=== PATIENT | female | born 1940 | race Caucasian/White ===

== ENCOUNTER → 2016-06-30 | Outpatient (CLI) | payer OTHER, MEDICARE | LOC: BMCIMAGING 13:50 | PROVIDERS: ATTEND Internal Medicine | DX: M79.89 Other specified soft tissue disorders (principal) ==

== ENCOUNTER 2016-08-17 08:47 | Emergency (ER) | payer OTHER, MEDICARE ==
[2016-08-17 09:01] VITALS: TEMP 97.5
[2016-08-17] MEDS ORDERED: NS 1,000 ML IV ONE (09:15)
--- NOTE | 2016-08-17 09:23 | EDPHY ---
H & P Time Seen by Provider: 08/17/16 08:58 HPI/ROS: CHIEF COMPLAINT: Abdominal discomfort, constipation HISTORY OF PRESENT ILLNESS: This patient is a 76 year old female complaining of abdominal discomfort intermittently over the last week and constipation. She was recently treated for shingles, two weeks ago, and had finished a course of steroids and Valtrex. She was prescribed Percocet as well for pain control, but states she has only taken two doses due to fear of constipation. She has discontinued all shingles medications at this time. She states she has had a decreased appetite, and endorses aching stomach and generalized discomfort, mostly localized to her lower left side. She is concerned that she has not had a bowel movement in quite some time, despite trying OTC constipation relief medications. She denies fever, chills, shortness of breath, vomiting, or other associated symptoms. REVIEW OF SYSTEMS: Constitutional: No fever, no chills Eyes: No visual changes ENT: No sore throat Respiratory: No cough, no shortness of breath Cardiac: No chest pain Gastrointestinal: Abdominal pain, constipation. No nausea, no vomiting. Genitourinary: No hematuria, no dysuria Musculoskeletal: No leg pain or swelling Skin: Healing shingles rash Neurological: No headache, no numbness, no weakness Psychiatric: No depression Past Medical/Surgical History: IBS, liver cyst Social History: Family member at bedside. Medical Examiner: Dr. Eugene Smoking Status: Never smoked Physical Exam: General Appearance: Alert, no distress Eyes: Pupils equal and round, no conjunctival pallor or injection ENT, Mouth: Mucous membranes moist Neck: Normal inspection Respiratory: Lungs are clear to auscultation Cardiovascular: Regular rate and rhythm Gastrointestinal: Left lower quadrant tenderness. Back: Healing rash on left lumbar area. Multiple areas of erythema with scabs. Neurological: A&O, nonfocal, normal gait Skin: Warm and dry, no rash Extremities: Nontender, no pedal edema Psychiatric: Mood and affect normal Constitutional: Initial Vital Signs Temperature (C) 36.4 C 08/17/16 08:51 Heart Rate 79 08/17/16 08:51 Respiratory Rate 18 08/17/16 08:51 Blood Pressure 137/85 H 08/17/16 08:51 O2 Sat (%) 95 08/17/16 08:51 O2 Delivery Mode Room Air Allergies/Adverse Reactions: No Allergies [NKDA] Allergy (Verified 08/17/16 08:49) Home Medications: Medication Instructions Recorded Ambien CR 04/13/09 BISOPROLOL-HCTZ 5-6.25 MG TAB 04/13/09 Simvastatin 04/13/09 Ahreds 08/17/16 Aspirin 81mg (*) 08/17/16 Medical Decision Making - Diagnostics Imaging Results: Imaging Impressions Abdomen CT 08/17/16 09:16 Impression: 1. Chronic sigmoid diverticulosis without evidence of diverticulitis. 2. Stable pancreatic divisum without evidence for acute pancreatitis. 3. Stable 1 cm gallbladder polyp. Results called and discussed with KERA RESTREPO, at 08/17/2016 11:47 General information for patients regarding this examination can be found at [email or web address]. If you have questions or comments about this report, please contact me at (hospital) or [phone] (cell). Imaging: Discussed imaging studies w/ call center agent Radiologist ED Course/Re-evaluation: This patient is a 76year old female presenting with lower left quadrant abdominal pain. Physical exam reveals healing shingles rash to the lower left lumbar region. I discussed the probability that shingles is causing the patient' s severe left lower quadrant pain. Given her advanced age and significant pain, I will obtain a CT scan of the abdomen and pelvis with IV contrast to rule out diverticulitis or other etiology for pain. The patient is reluctant to take any pain medications. The patient agreed to 4mg IV morphine for pain relief. The patient feels better after IV pain medications. 11:[address] Villalobos, radiologist. CT negative for acute processes. Patient's abdominal pain related to shingle. Reassessed patient. Plan to discharge home in good condition. The patient will follow up with her primary care provider for continued management of symptoms. She is comfortable with this plan. I encouraged her to take Percocet as needed for abdominal pain. Differential Diagnosis: Differential diagnosis includes though it is not limited to appendicitis, cholecystitis, diverticulitis, pyelonephritis, bowel perforation, small bowel obstruction. - Data Points Laboratory Results: Laboratory Results 08/17/16 09:25 08/17/16 09:25 08/17/16 08/17/16 08/17/16 09:25 09:25 09:21 WBC 5.62 10^3/uL 10^3/uL (3.80-9.50) RBC 4.35 10^6/uL 10^6/uL (4.18-5.33) Hgb 13.6 g/dL g/dL (12.6-16.3) POC Hgb 15.0 gm/dL gm/dL (12.6-16.3) Hct 39.9 % % (38.0-47.0) POC Hct 44 % % (38-47) MCV 91.7 fL fL (81.5-99.8) MCH 31.3 pg pg (27.9-34.1) MCHC 34.1 g/dL g/dL (32.4-36.7) RDW 13.5 % % (11.5-15.2) Plt Count 258 10^3/uL 10^3/uL (150-400) MPV 9.5 fL fL (8.7-11.7) Neut % (Auto) 65.7 % % (39.3-74.2) Lymph % (Auto) 23.0 % % (15.0-45.0) [place] % (Auto) 9.6 % % (4.5-13.0) Eos % (Auto) 1.1 % % (0.6-7.6) Baso % (Auto) 0.4 % % (0.3-1.7) Nucleat RBC Rel Count 0.0 % % (0.0-0.2) Absolute Neuts (auto) 3.70 10^3/uL 10^3/uL (1.70-6.50) Absolute Lymphs (auto) 1.29 10^3/uL 10^3/uL (1.00-3.00) Absolute Monos (auto) 0.54 10^3/uL 10^3/uL (0.30-0.80) Absolute Eos (auto) 0.06 10^3/uL 10^3/uL (0.03-0.40) Absolute Basos (auto) 0.02 10^3/uL 10^3/uL (0.02-0.10) Absolute Nucleated RBC 0.00 10^3/uL 10^3/uL (0-0.01) Immature Gran % 0.2 % % (0.0-1.1) Immature Gran # 0.01 10^3/uL 10^3/uL (0.00-0.10) POC Sodium 134 mEq/L mEq/L (134-144) Sodium 134 mEq/L mEq/L (134-144) POC Potassium 4.2 mEq/L mEq/L (3.3-5.0) Potassium 4.6 mEq/L mEq/L (3.5-5.2) POC Chloride 96 mEq/L L mEq/L (97-110) Chloride 100 mEq/L mEq/L (97-110) Carbon Dioxide 22 mEq/l mEq/l (22-31) Anion Gap 12 mEq/L mEq/L (8-16) POC BUN 13 mg/dL mg/dL (7-23) BUN 14 mg/dL mg/dL (7-23) Creatinine 0.6 mg/dL mg/dL (0.6-1.0) POC Creatinine 0.6 mg/dL mg/dL (0.6-1.0) Estimated GFR > 60 Glucose 96 mg/dL mg/dL (70-100) POC Glucose 100 mg/dL mg/dL (70-100) Calcium 9.3 mg/dL mg/dL (8.5-10.4) Medications Given: Discontinued Medications Sodium Chloride (Ns) 1,000 mls @ 0 mls/hr IV ONCE ONE; Wide Open PRN Reason: Protocol Stop: 08/17/16 09:16 Last Admin: 08/17/16 09:28 Dose: 1,000 mls Morphine Sulfate (Morphine) 4 mg IVP EDNOW ONE Stop: 08/17/16 10:29 Last Admin: 08/17/16 10:35 Dose: 4 mg Point of Care Test Results: 08/17/16 09:21 POC Sodium 134 POC Potassium 4.2 POC Chloride 96 L POC BUN 13 POC Creatinine 0.6 POC Glucose 100 Departure - Departure Disposition: Home, Routine, Self-Care Clinical Impression: Abdominal pain Qualifiers: Abdominal location: left lower quadrant Qualified Code(s): R10.32 - Left lower quadrant pain Shingles Qualifiers: Herpes zoster complications: with other complications Qualified Code(s): B02.8 - Zoster with other complications Condition: Good Instructions: Shingles (ED), Abdominal Pain (ED) Additional Instructions: 1. Take your Percocet as needed for pain relief. 2. Follow up with your primary care physician this week, Wednesday or for continued management of symptoms. 3. Return to the emergency department if you develop worsening pain, fever, vomiting, or other worsening of condition. Referrals: Samaria Issa MD [Primary Care Provider] - As per Instructions Report Scribed for: Kera Restrepo Report Scribed by: Latasha Walters Date of Report: 08/17/16 Time of Report: 09:25 Physician Review and Approval Statement: 08/17/16 09:25 Portions of this note were transcribed by a medical records coder. I personally performed a history, physical exam, medical decision making, and confirmed accuracy of information the transcribed note.
[2016-08-17 09:31] LABS: % IMMATURE GRANULYOCYTES 0.2 % (0.0-1.1); ABSOLUTE IMMATURE GRANULOCYTES 0.01 10^3/uL (0.00-0.10); ADD DIFF? NO; ADD MORPH? NO; ADD SCAN? NO; ATYPICAL LYMPHOCYTE FLAG 40 (0-99); FRAGMENT RBC FLAG 0 (0-99); HEMATOCRIT 39.9 % (38.0-47.0); HEMOGLOBIN 13.6 g/dL (12.6-16.3); LEFT SHIFT FLG 0 (0-99); LIPEMIA HEMOLYSIS FLAG 90 (0-99); MEAN CELL HEMOGLOBIN 31.3 pg (27.9-34.1); MEAN CELL HEMOGLOBIN CONCENTR. 34.1 g/dL (32.4-36.7); MEAN CELL VOLUME 91.7 fL (81.5-99.8); MEAN PLATELET VOLUME 9.5 fL (8.7-11.7); PLATELET CLUMPS FLAG 0 (0-99); PLATELET COUNT 258 10^3/uL (150-400); RED BLOOD CELL COUNT 4.35 10^6/uL (4.18-5.33); RED CELL DISTRIBUTION WIDTH 13.5 % (11.5-15.2)
[2016-08-17 09:43] LABS: ANION GAP 12 mEq/L (8-16); CALCIUM 9.3 mg/dL (8.5-10.4); CARBON DIOXIDE 22 mEq/l (22-31); CHLORIDE 100 mEq/L (97-110); CREATININE 0.6 mg/dL (0.6-1.0); GLOMERULAR FILTRATION RATE > 60; GLUCOSE 96 mg/dL (70-100); POTASSIUM 4.6 mEq/L (3.5-5.2); SODIUM 134 mEq/L (134-144)
[2016-08-17] MEDS ORDERED: IOPAMIDOL (ISOVUE-300) 100 ML BTL ONE (09:50)
[2016-08-17 12:13] VITALS: BP 160/97; PULSE 82; RESP 16; O2SAT 92
== END 2016-08-17 12:27 | disposition home or self-care (01) ==
DX: R10.32 Left lower quadrant pain (principal); B02.8 Zoster with other complications; E86.9 Volume depletion, unspecified; Z79.82 Long term (current) use of aspirin
CPT/HCPCS: 74177; 96361; 96374; 99285; Q9967; 82947-QW

== ENCOUNTER → 2016-10-28 | Outpatient (CLI) | payer OTHER, MEDICARE | LOC: BMCIMAGING 12:34 | PROVIDERS: ATTEND Family Medicine | DX: Z12.31 Encounter for screening mammogram for malignant neoplasm of breast (principal) | CPT/HCPCS: G0202 ==

== ENCOUNTER → 2017-11-01 | Outpatient (CLI) | payer OTHER, MEDICARE | LOC: FIMAGING 11:39 | PROVIDERS: ATTEND Family Medicine | DX: Z12.31 Encounter for screening mammogram for malignant neoplasm of breast (principal) ==

== ENCOUNTER → 2017-12-07 | Outpatient (CLI) | payer OTHER, MEDICARE | LOC: BMCIMAGING 08:41 | PROVIDERS: ATTEND Podiatrist Foot & Ankle Surgery | DX: M19.072 Primary osteoarthritis, left ankle and foot (principal); M20.12 Hallux valgus (acquired), left foot ==

== ENCOUNTER → 2018-05-11 | Outpatient (CLI) | payer OTHER, MEDICARE | LOC: FIMAGING 09:02 | PROVIDERS: ATTEND Family Medicine | DX: Z13.820 Encounter for screening for osteoporosis (principal); M85.89 Other specified disorders of bone density and structure, multiple sites ==